=== PATIENT | female | born 1985 | race Two or more races ===

== ENCOUNTER 2020-06-11 23:51 | Emergency (ER) | payer SELFPAY ==
[~2020-06-11] VITALS: Ht 149.9 cm; Wt 43.1 kg
[2020-06-12 01:00] VITALS: BP 114/68
[2020-06-12 01:15] LABS: Basophils # (auto) 0 10 ^3/uL (0-0.2); Basophils % (auto) 0.2 % (0.0-2.0); Eosinophils # (auto) 0.2 10 ^3/uL (0-0.8); Eosinophils % (auto) 2.9 % (0.0-7.0); Hematocrit 39.7 % (36.0-46.0); Hemoglobin 13.4 g/dL (12.2-16.2); Lymphocytes # (auto) 2.9 10 ^3/uL (0.4-5.4); Lymphocytes % (auto) 38.8 % (10.0-50.0); Mean Corpuscular Hemoglobin 30.1 pg (28.0-32.0); Mean Corpuscular Hgb Conc. 33.8 g/dL (32.0-36.0); Mean Corpuscular Volume 89.1 fL (80.0-100.0); Monocytes # (auto) 0.6 10 ^3/uL (0-1.3); Monocytes % (auto) 7.8 % (0.0-12.0); Neutrophils # (auto) 3.8 10 ^3/uL (1.6-8.6); Neutrophils % (auto) 50.3 % (37.0-80.0); Nucleated Red Blood Cells % 0.1 %; Platelet Count (auto) 189 10^3/uL (140-450); Red Blood Cells 4.46 10^6/uL (4.0-5.20); Red Cell Distribution Width 13.1 % (11.8-14.3); White Blood Cell 7.5 10^3/uL (4.4-10.8)
[2020-06-12 01:33] LABS: Albumin 3.7 g/dL (3.4-5.0); Anion Gap 7 (5-15); Blood Urea Nitrogen 14 mg/dL (7-18); Calcium 8.5 mg/dL (8.5-10.1); Carbon Dioxide 26 mmol/L (21-32); Chloride 107 mmol/L (98-107); Glucose 102 mg/dL (74-106); Magnesium 2.2 mg/dL (1.6-2.6); Potassium 3.5 mmol/L (3.5-5.1); Sodium 140 mmol/L (136-145)
[2020-06-12 01:35] LABS: Alanine Aminotransferase 18 U/L (13-56); Aspartate Aminotransferase 11 U/L (15-37); BUN/Creatinine Ratio 20.6; GFR African American 129 mL/min; GFR Non-African American 107 mL/min
[2020-06-12 01:40] LABS: Alkaline Phosphatase 46 U/L (45-117); Total Protein 7.3 g/dL (6.4-8.2)
[2020-06-12 01:44] LABS: INR 1.03 (0.9-1.15); Partial Thromboplastin Time 27.9 sec (23.0-31.2)
== END 2020-06-12 02:35 | disposition home or self-care (01) ==
LOC: ER 23:51
DX: R07.89 Other chest pain (principal); F41.9 Anxiety disorder, unspecified
CPT/HCPCS: 36415; 71045; 80053; 83735; 83880; 84443; 84484; 85025; 85379; 85610; 85730

== ENCOUNTER 2021-07-23 07:39 | Emergency (ER) | payer OTHER ==
[~2021-07-23] VITALS: Ht 149.9 cm; Wt 43.1 kg
[2021-07-23 08:58] VITALS: BP 134/78
== END 2021-07-23 09:09 | disposition home or self-care (01) ==
LOC: ER 07:39
DX: M77.8 Other enthesopathies, not elsewhere classified (principal)